=== PATIENT | male | born 1955 | race Caucasian/White ===

== ENCOUNTER 2016-12-31 15:03 | Day surgery (SDC) | payer BC ==
[~2016-12-31] VITALS: Ht 170.2 cm; Wt 83.0 kg
[2016-12-31] MEDS ORDERED: FENTAnyl 50 MCG/ML VIAL ONE ×2 (15:05→16:00)
[2016-12-31] MEDS ORDERED: MIDAZOLAM 1 MG/ML 2 ML INJ ONE (15:05)
[2016-12-31 15:39] VITALS: Ht 170.2 cm; Wt 83.0 kg
[2016-12-31] MEDS ORDERED: ALPR1TAB2 PO (15:43)
[2016-12-31] MEDS ORDERED: LIDOCAINE 100 MG SYRINGE ONE (16:00)
[2016-12-31] MEDS ORDERED: PROPOFOL 60 ML ONE (16:00)
[2016-12-31 16:16] VITALS: BP 118/69; PULSE 77; RESP 14
--- NOTE | 2016-12-31 17:16 | GILP ---
DATE OF PROCEDURE: 12/31/2016 NAME OF PROCEDURE: Colonoscopy. SURGEON: Reshma Samaniego MD PREOPERATIVE DIAGNOSIS: Screening colonoscopy. POSTOPERATIVE DIAGNOSES 1. Colonoscopy all the way to the cecum. 2. Poor prep with solid stool in the right colon and scattered solid stool all over making the exam very suboptimal. 3. Internal hemorrhoids. INDICATION FOR THE PROCEDURE: Mr. Leonel Potts is a 61-year-old male patient who was scheduled f or screening colonoscopy. The procedure and possible complications were well explained to the patient, he understood and conse nted to the procedure. DESCRIPTION OF PROCEDURE: Under the influence of anesthesia, the colonoscope was carefully introduc ed in the rectum and under direct vision, it was advanced all the way to the cecum. FINDINGS: The patient had a very poor prep with solid stool in the right colon. He also had scatte red solid stool all over making the exam very inadequate. The patient was noted to have internal he morrhoids. He tolerated the procedure very well and there was no complication from the procedure. At the end o f the procedure, he was awake with stable vital signs and he was discharged home to the care of his family. IMPRESSION: 1. Colonoscopy all the way to the cecum. 2. Poor prep with solid stool in the right colon and scattered solid stool all over making the exam very inadequate. 3. Internal hemorrhoids. PLAN: The patient will need repeat colonoscopy with better preparation in 1 year. Dictated By: RESHMA PENNINGTON/CRISTINA Conf#: [id number] DID#: [id number]
[2016-12-31 17:22] VITALS: BP 102/65; PULSE 72; RESP 16
== END 2016-12-31 17:37 | disposition home or self-care (01) ==
LOC: GIL 15:03
PROVIDERS: ATTEND Internal Medicine Gastroenterology
DX: Z12.11 Encounter for screening for malignant neoplasm of colon (principal); K64.8 Other hemorrhoids; F41.9 Anxiety disorder, unspecified
CPT/HCPCS: 45378; J2001; J2250; J3010; Z7610